=== PATIENT | female | born 1955 | race Caucasian/White ===

== ENCOUNTER 2020-05-22 16:34 | Emergency (ER) | payer BC, SELFPAY ==
[2020-05-22 16:56] VITALS: BP 134/65; PULSE 72; RESP 16; TEMP 36.5; O2SAT 94; BMI 36.7
--- NOTE | 2020-05-22 17:03 | W.ED.FEMALGU ---
HPI - Female Genitourinary General: Chief complaint: Urogenital-Female Stated complaint: poss uti Time Seen by Provider: 05/22/20 17:01 History of Present Illness: HPI Narrative: Patient is a 64-year-old female comes to the ED with UTI symptoms. Patient says symptoms started on Saturday. She is having some bladder pain, dysuria and increased frequency and urgency to urinate. She endorses feeling a little bit nauseous but has not had any episodes of emesis. Denies fever, chills, shortness of breath, abdominal pain, constipation or diarrhea. Denies any vaginal discharge or vaginal itching. Associated symptoms: Deny abdominal pain, headache(s), nausea or vaginal discharge Review of Systems Const: Denies: fever(s), chills or fatigue Eyes: Denies: change in vision or eye discomfort ENMT: Denies: throat pain, odynophagia, nasal discharge or nasal congestion Card: Denies: chest pain, palpitations, edema, swelling of feet/ankles, dyspnea on exertion or orthopnea Resp: Denies: dyspnea, productive cough or non-productive cough GI: Denies: abdominal pain, nausea, vomiting, diarrhea, constipation or hematochezia : Reports: dysuria, urinary frequency and urinary urgency; Denies: flank pain, hematuria, genital pruritis or vaginal discharge Musc: Denies: neck pain, back pain or extremity swelling Skin/Breast: Denies: rash or new lesions Neuro: Denies: headache(s), numbness in extremities or weakness in extremities PFS ED PFSH: Social History Smoking and tobacco status: never smoked Alcohol intake: never Substance/Drug Use: never Physical Exam Const: COMMON NORMALS: no acute distress and alert GENERAL APPEARANCE: cooperative and comfortable HENMT: COMMON NORMALS: normocephalic HEAD & SCALP: normocephalic MOUTH: Normal oral and palatal mucosa present THROAT: posterior oropharynx normal and uvula midline Neck/C-Spine: COMMON NORMALS: supple GENERAL: Yes normal visual inspection Resp: COMMON NORMALS: normal respiratory effort, No retractions, No use of accessory muscles and clear to auscultation bilaterally AUSCULTATION: clear to auscultation bilaterally Cardio: COMMON NORMALS: regular rate, regular rhythm, S1 normal heart sound present, S2 normal heart sound present, No gallops present (Cardio), No clicks present (Cardio), No murmurs present (Cardio) and Peripheral pulses 2+ throughout RATE: regular rate RHYTHM: regular rhythm HEART SOUNDS: S1 normal heart sound present and S2 normal heart sound present PERIPHERAL PULSES: Peripheral pulses 2+ throughout GI: COMMON NORMALS: Normal to inspection, nondistended, normoactive bowel sounds present, Soft to palpation, non-tender and no masses PALPATION: Yes Soft to palpation and Yes Bladder palpation abnormal : COMMON NORMALS: Yes no CVA tenderness BLADDER/KIDNEY EXAM: Yes no CVA tenderness and Yes Bladder palpation abnormal Bladder abnormal details: tender (mild) Back/Pelvis: COMMON NORMALS: no CVA tenderness Extremity: COMMON NORMALS: normal to inspection and no pedal edema Neuro: SENSORIUM/ORIENTATION: Yes alert Skin: COMMON NORMALS: no rashes or lesions noted GENERAL SKIN EXAM: no rashes or lesions noted and dry skin Course Vital Signs: Vital signs: Vital Signs Temperature 97.7 F 05/22/20 16:56 Pulse Rate 71 05/22/20 18:31 Respiratory Rate 16 05/22/20 18:31 Blood Pressure 133/76 05/22/20 18:31 Pulse Oximetry 96 05/22/20 18:31 MDM - Female MDM Narrative: Medical decision making narrative: Patient is a 64-year-old female comes to the ED with UTI symptoms. UA showed multiple RBCs, white blood cells and bacteria. Patient diagnosed with UTI and put on a prescription of cefdinir. Follow-up with PCP in 7 to 10 days. Return to ED precautions given. Patient understood agree with plan. Lab Data: Attestation: I reviewed the patient's lab results. Labs: Lab Results 05/22/20 Range/Units 17:14 Urine Color Yellow (Yellow) Urine Appearance Sl cloudy A (CLEAR) Urine pH 6 (5-7) Ur Specific Gravit y 1.010 (1.005-1.030) Urine Protein Neg (Negative) Urine Glucose (UA) 4+ H (Normal) Urine Ketones Negative (Negative) Urine Blood 3+ H (Negative) Urine Nitrate Negative (Negative) Urine Bilirubin Neg (Negative) Urine Urobilinogen Norm (Negative) mg/dL Ur Leukocyte Shanell ase 2+ H (Negative) Urine RBC Too numerous to c nt H (0-2) /hpf Urine WBC Too numerous to c nt H (0-5) /hpf Ur Squamous Epith Cells 0-4 H (0-5) /hpf Amorphous Sediment 1+ /hpf Urine Bacteria 1+ H (NONE) /hpf Discharge Plan Discharge Patient Disposition: Home Clinical Impression: Urinary tract infection Qualifiers: Urinary tract infection type: acute cystitis Hematuria presence: with hematuria Qualified Code(s): N30.01 - Acute cystitis with hematuria Condition: Stable Prescriptions: New sulfamethoxazole-trimethoprim 800-160 mg tablet 1 tab PO BID 7 Days Qty: 14 RF: 0 Discharge Orders: Discharge Order (Routine); Ordered 05/22/20 Ordered By: Micah Mcgee Discharge Diet: Regular Discharge Activity: Resume usual activity Patient Instructions: Urinary Tract Infection in Women (ED) Activity Restrictions/Additional Instructions: Follow-up with medical provider as directed in 7- 10 days. Take medications as prescribed. Return to the ER or your medical provider if condition worsens. Please read and understand discharge instructions. If any questions, please ask. Discharge Date/Time: 05/22/20 18:31 Coding Level of Care Code ED Neck Band Setter for Levi Fwd Exam Comprehensive
[2020-05-22 17:16] VITALS: RESP 16
[2020-05-22 17:50] LABS: Bilirubin Urine Neg (Negative); Blood Urine 3+ (Negative); Glucose Urine UA 4+ (Normal); Ketones Urine Negative (Negative); Leukocyte Esterase Urine 2+ (Negative); Nitrate Urine Negative (Negative); Protein Urine Neg (Negative); Urine Color Yellow (Yellow); Urobilinogen Urine Norm (Negative); pH Urine 6 (5-7)
[2020-05-22 18:03] LABS: RBC Urine TOO NUMEROUS TO CNT /hpf (0-2); WBC Urine TOO NUMEROUS TO CNT /hpf (0-5)
[2020-05-22 18:04] LABS: Add Urine Culture? Yes; Amorphous Sediment Urine 1+ /hpf; Bacteria Urine 1+ /hpf; Squamous Epithelial Cell Urine 0-4 /hpf (0-5)
[2020-05-22] MEDS: sulfamethoxazole-trimeth DS 160-800 mg Tablet 1 TAB PO (18:26)
[2020-05-22 18:31] VITALS: BP 133/76; PULSE 71; RESP 16; O2SAT 96
== END 2020-05-22 18:31 | disposition home or self-care (01) ==
PROVIDERS: Emergency Provider Physician Assistant
DX: N30.01 Acute cystitis with hematuria (principal)
CPT/HCPCS: 12345; 81001; 87077; 87086; 87186; 99282; 99283

== ENCOUNTER 2020-12-21 08:16 | Outpatient (CLI) | payer MEDICARE, OTHER, SELFPAY ==
--- NOTE | 2020-12-21 09:50 | N.ONRAD NP_ITS ---
Radiation Oncology Consultation Patient Name: Malaika Marin Date of : 1955 Date of Service: 12/21/2020 Attending Physician: Raul Cano M.D. Malaika Marin was seen in consultation this morning for evaluation regarding adjuvant head and neck radiotherapy for the management of a recently diagnosed oral cavity carcinoma. The patient was evaluated regarding a lesion on her right mandibular ridge in August. Physical examination identified a 3 cm x 2 cm x 1.5 cm exophytic lesion within the premolar region of the right mandibular ridge. A biopsy of the lesion diagnosed a well-differentiated keratinizing squamous cell carcinoma. A CT of the neck ordered on October 04, 2020 demonstrated a 1.6 cm x 1 cm x 1.2 cm soft tissue lesion of the right mandibular alveolar ridge and an ill-defined nodule in the left thyroid lobe without pathologically enlarged lymphadenopathy. A PET CT scan (independently visualized in [facility]) confirmed FDG activity within the right mandibular alveolar ridge (SUV 10.3) and a right level 1b lymph node measuring 6 mm x 4 mm with a maximal SUV of 2.9). There was no evidence of metastatic disease. A composite resection with right segmental mandibulectomy, floor of mouth excision, buccal mucosal resection, and tracheostomy with reconstruction consisting of a left osteocutaneous free fibular flap, transosteal plating, and split thickness skin graft was performed on October 28, 2020 at [facility] in [place], [place]. Pathology (report requested from outside hospital and personally reviewed) confirmed a 2.4 cm differentiated keratinizing squamous cell carcinoma demonstrating 7 mm invading through the cortical bone of the mandible. A total of 28 lymph nodes were harvested with 1 (4 mm) harboring metastatic disease without extranodal extension. Her hospital course was complicated by a MRSA wound infection requiring incision and debridement. She presents for discussion regarding consideration of postoperative radiotherapy. I discussed with Ms. Marin The AJCC staging, specifically the patient's pathological stage DAISY (T4aN1) of the oral cavity associated with her diagnosis and The National Comprehensive Cancer Network Guidelines for adjuvant radiotherapy in patients with newly resected tumors and adverse features (i.e. close margins, lymphovascular invasion/perineural, pN2/pN3, or advanced tumors; pT3-pT4). I would endorse a six week course of radiation therapy. I will order labs today and prior to beginning treatment, a radiotherapy planning CT scan with contrast will be acquired to delineate the clinical target volumes. I reviewed the potential toxicities of head and neck radiotherapy. The patient has verbalized understanding and would like to proceed as advocated. Signed by: Dr. Raul Cano 12/28/2020 9:19:45 AM
[2020-12-21] MEDS: alteplase 1 mg/mL SDV 2 mL 2 MG IV (10:20)
[2020-12-21 11:22] LABS: Basophils # 0.1 10^3/uL (0.0-0.1); Basophils % 0.7 %; Eosinophils # 0.2 10^3/uL (0.0-0.8); Eosinophils % 2.1 %; Hematocrit 36.2 % (37.0-47.0); Hemoglobin 10.9 g/dL (11.5-15.3); Lymphocytes # 1.3 10^3/uL (0.8-4.8); Lymphocytes % 14.9 %; Mean Corpuscular HGB Conc 30.1 g/dL (30.0-36.0); Mean Corpuscular Hemoglobin 26.9 pg (28.0-34.0); Mean Corpuscular Volume 89.4 fL (81-99); Mean Platelet Volume 11.5 fL (7.4-10.4); Monocytes # 0.4 10^3/uL (0.2-0.9); Monocytes % 4.2 %; Neutrophils % 77.8 %; Nucleated Red Blood Cells % 0 %; Platelet Count 230 10^3/cmm (130-400); Red Blood Count 4.05 10^6/uL (4.1-5.3); Red Cell Distribution Width 13.9 % (12.1-15.1); White Blood Count 8.7 10^3/uL (4.0-10.0)
[2020-12-21 12:00] LABS: Alanine Aminotransferase 14 U/L (0-33); Albumin Level 3.6 g/dL (3.5-5.2); Alkaline Phosphatase 110 IU/L (35-105); Anion Gap 14.6 (5-19); Aspartate Amino Transferase 14 U/L (0-32); Blood Urea Nitrogen 19 mg/dL (8-23); Calcium 9.2 mg/dL (8.5-10.5); Carbon Dioxide 26 mmol/L (22-29); Chloride 96 mmol/L (98-107); Globulin 2.9 g/dL (1.3-4.6); Glomerular Filtration Rate 84.2 mL/min (90-130); Glucose 235 mg/dL (65-115); Osmolality Calculated 284 mOsm/kg (285-295); Potassium 4.6 mmol/L (3.5-5.1); Sodium 132 mmol/L (136-145); Total Bilirubin 0.4 mg/dL (0.15-1.2); Total Protein 6.5 g/dL (6.6-8.7)
== END 2020-12-21 08:17 | disposition home or self-care (01) ==
PROVIDERS: PCP Family Medicine; Visit Provider Radiology Radiation Oncology
DX: C14.8 Malignant neoplasm of overlapping sites of lip, oral cavity and pharynx (principal)
CPT/HCPCS: 36593; 80053; 85025; 96374; 99205; J2997

== ENCOUNTER 2021-01-03 11:47 | Outpatient (RCR) | payer MEDICARE, OTHER, SELFPAY | END 2021-01-23 23:59 | disposition home or self-care (01) | LOC: SST 11:47 | PROVIDERS: PCP Family Medicine; Referring Provider Physician Assistant; Visit Provider Physician Assistant | DX: R13.11 Dysphagia, oral phase (principal) | CPT/HCPCS: 92507; 92523; 92610 ==

== ENCOUNTER 2021-01-20 05:43 | Outpatient (RCR) | payer MEDICARE, OTHER, SELFPAY ==
--- NOTE | 2020-12-28 | CT_ITS ---
Radiation Therapy Planning CT images; total exam DLP: 853.31 mGy-cm MTDD
--- NOTE | 2021-01-03 15:00 | ONCRAD TMN_ITS ---
Radiation Oncology Treatment Management Note Patient Name: Malaika Marin Date of : 1955 Date of Service: 01/03/2021 Attending Physician: Raul Cano M.D. 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 A composite resection with right segmental mandibulectomy, floor of mouth excision, buccal mucosal resection, and tracheostomy with reconstruction consisting of a left osteocutaneous free fibular flap, transosteal plating, and split thickness skin graft was performed on October 28, 2020. The patient has received 2 Gy of a prescribed 66 Bautista with an intensity modulated radiotherapy plan utilizing a step and shoot treatment technique. Upon review of systems, she denied any complaints related to radiotherapy. On physical examination, the patient weighed 186 lbs. Her temperature was 97.6 ???F with a blood pressure of 118/61 mmHg. Her pulse was 70 bpm and the respiratory rate was 20. No erythema within the treatment tony. Continue post-operative head and neck radiotherapy as prescribed. Signed by: Dr. Raul Cano 01/03/2021 2:58:35 PM
[2021-01-06 10:34] LABS: Urine Color Other (Yellow)
[2021-01-06 10:35] LABS: Blood Urine 3+ (Negative); Glucose Urine UA 4+ (Normal); Ketones Urine Negative (Negative); Nitrate Urine Negative (Negative); Protein Urine 1+ (Negative); Urine Appearance Cloudy (CLEAR); pH Urine 5 (5-7)
[2021-01-06 10:36] LABS: Bilirubin Urine Neg (Negative); Leukocyte Esterase Urine 2+ (Negative); RBC Urine >100 /hpf (0-2); Urobilinogen Urine Norm (Negative)
[2021-01-06 10:37] LABS: Bacteria Urine 1+ /hpf; Squamous Epithelial Cell Urine 0-4 /hpf (0-5); WBC Urine 25-40 /hpf (0-5)
[2021-01-06 10:38] LABS: Add Urine Culture? Yes
--- NOTE | 2021-01-10 15:15 | ONCRAD TMN_ITS ---
Radiation Oncology Treatment Management Note Patient Name: Malaika Marin Date of : 1955 Date of Service: 01/10/2021 Attending Physician: Raul Cano M.D. 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 A composite resection with right segmental mandibulectomy, floor of mouth excision, buccal mucosal resection, and tracheostomy with reconstruction consisting of a left osteocutaneous free fibular flap, transosteal plating, and split thickness skin graft was performed on October 28, 2020. The patient has received 12 Gy of a prescribed 66 Bautista with an intensity modulated radiotherapy plan utilizing a step and shoot treatment technique. Upon review of systems, she denied any complaints related to radiotherapy. She described dizziness that started prior to treatment. On physical examination, the patient weighed 188 lbs. Her temperature was 98.2 ???F with a blood pressure of 113/58 mmHg. Her pulse was 70 bpm and the respiratory rate was 18. No erythema within the treatment tony. Continue post-operative head and neck radiotherapy as planned. I will order labs and contact edge molder about evaluating ICD. Signed by: Dr. Raul Cano 01/10/2021 3:14:01 PM
[2021-01-10 16:03] LABS: Basophils # 0.1 10^3/uL (0.0-0.1); Basophils % 0.8 %; Eosinophils # 0.1 10^3/uL (0.0-0.8); Eosinophils % 1.7 %; Hematocrit 35.5 % (37.0-47.0); Hemoglobin 10.9 g/dL (11.5-15.3); Lymphocytes # 0.9 10^3/uL (0.8-4.8); Lymphocytes % 14.4 %; Mean Corpuscular HGB Conc 30.7 g/dL (30.0-36.0); Mean Corpuscular Volume 87.9 fL (81-99); Mean Platelet Volume 11.4 fL (7.4-10.4); Monocytes # 0.5 10^3/uL (0.2-0.9); Monocytes % 7.1 %; Neutrophils % 75.5 %; Nucleated Red Blood Cells % 0 %; Platelet Count 264 10^3/cmm (130-400); Red Blood Count 4.04 10^6/uL (4.1-5.3); Red Cell Distribution Width 14.5 % (12.1-15.1); White Blood Count 6.5 10^3/uL (4.0-10.0)
[2021-01-10 16:27] LABS: Alanine Aminotransferase 11 U/L (0-33); Albumin Level 3.9 g/dL (3.5-5.2); Alkaline Phosphatase 84 IU/L (35-105); Anion Gap 16.4 (5-19); Aspartate Amino Transferase 14 U/L (0-32); Blood Urea Nitrogen 32 mg/dL (8-23); Calcium 9.4 mg/dL (8.5-10.5); Carbon Dioxide 28 mmol/L (22-29); Chloride 89 mmol/L (98-107); Glomerular Filtration Rate 45.2 mL/min (90-130); Glucose 228 mg/dL (65-115); Magnesium 2.7 mg/dL (1.7-2.3); Osmolality Calculated 282 mOsm/kg (285-295); Potassium 4.4 mmol/L (3.5-5.1); Sodium 129 mmol/L (136-145); Total Bilirubin 0.3 mg/dL (0.15-1.2); Total Protein 6.9 g/dL (6.6-8.7)
--- NOTE | 2021-01-17 14:00 | ONCRAD TMN_ITS ---
Radiation Oncology Weekly Treatment Management Patient: Tania Bazzi MR#: [id number] : 1955> Attending Physician: Dr. Omer Harley Date of Service: 01/17/2021 Referring Physician(s) : Dr. 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 ID: [id number], Energy: 6X, Dose/Fx (cGy): 200, #Fx: , Dose Correction (cGy): 0, Total Dose (cGy): 2,200, Start Date: 01/03/2021, Elapsed Days: 14 Reason for visit: The patient is being seen today as part of their regularly scheduled weekly on treatment visits to assess for acute toxicities from radiotherapy. Review of Systems: Previous UTI now clear following Bacrim. Notes new rash in left groin. Tolerating soft diet well. No sore mouth or throat. Able to do some laundry and kitchen work. Gets dizzy after along walk. This does clear after a rest. No BP measured at these times. She has a pacer /defibrillator placed. She is on HTN meds. Vital Signs: Performed on 01/17/2021 1:29 PM BMI - 32.133 kg/m2 (high), Height - 64.00 in, Weight - 187.2 lbs, Temperature - 98.4 f, Pulse - 70, Respiration - 18, O2 Sat - 98 %, Pain - 0 and BP - 120/ 58 mm(hg)(/low). Physical Exam: Imaging: Radiation therapy imaging related to accurate target localization (i.e. KV, MV and CBCT) was reviewed. Appropriate changes, if any, were made to ensure treatment accuracy. Plan: Good tolerance of RT. Continue as planned. Check BP at home when dizziness is present. Signed by: Dr. Omer Harley 01/17/2021 1:59:32 PM
== END 2021-01-23 23:59 | disposition home or self-care (01) ==
LOC: ONCMED 05:43
PROVIDERS: Radiology Radiation Oncology; PCP Family Medicine; Visit Provider Radiology Radiation Oncology
DX: Z51.0 Encounter for antineoplastic radiation therapy (principal); C14.8 Malignant neoplasm of overlapping sites of lip, oral cavity and pharynx; Z79.899 Other long term (current) drug therapy
CPT/HCPCS: 36415; 77300; 77301; 77334; 77336; 77338; 77386; 80053; 81001; 83735; 85025; 87077; 87086; 87186; Q9967

== ENCOUNTER 2021-01-24 06:00 | Outpatient (RCR) | payer MEDICARE, OTHER, SELFPAY | END 2021-02-22 23:59 | disposition home or self-care (01) | LOC: SST 06:00 | PROVIDERS: PCP Family Medicine; Referring Provider Physician Assistant; Visit Provider Physician Assistant | DX: R13.11 Dysphagia, oral phase (principal); C06.9 Malignant neoplasm of mouth, unspecified | CPT/HCPCS: 92507 ==

== ENCOUNTER 2021-02-02 06:00 | Outpatient (RCR) | payer MEDICARE, OTHER, SELFPAY | END 2021-02-22 23:59 | disposition home or self-care (01) | LOC: SPT 06:00 | PROVIDERS: PCP Family Medicine; Referring Provider Family Medicine; Visit Provider Family Medicine | DX: C06.9 Malignant neoplasm of mouth, unspecified (principal); R13.11 Dysphagia, oral phase | CPT/HCPCS: 97110; 97140; 97161 ==

== ENCOUNTER 2021-02-14 05:49 | Outpatient (RCR) | payer MEDICARE, OTHER, SELFPAY ==
--- NOTE | 2021-01-24 11:35 | ONCRAD TMN_ITS ---
Radiation Oncology Treatment Management Note Patient Name: Malaika Marin Date of : 1955 Date of Service: 01/24/2021 Attending Physician: Raul Cano M.D. 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 A composite resection with right segmental mandibulectomy, floor of mouth excision, buccal mucosal resection, and tracheostomy with reconstruction consisting of a left osteocutaneous free fibular flap, transosteal plating, and split thickness skin graft was performed on October 28, 2020. The patient has received 30 Gy of a prescribed 66 Bautista with an intensity modulated radiotherapy plan utilizing a step and shoot treatment technique. Upon review of systems, she denied any complaints related to radiotherapy. She reported symptoms of a UTI. On physical examination, the patient weighed 187 lbs. Her temperature was 98.4 ???F with a blood pressure of 132/71 mmHg. Her pulse was 70 bpm and the respiratory rate was 20. No erythema within the treatment tony. Continue post-operative head and neck radiotherapy as planned. I will prescribe Bactrim DS for UTI (prior UA culture grew E. Coli and was sensitive to Bactrim. Signed by: Dr. Raul Cano 01/24/2021 11:33:36 AM
--- NOTE | 2021-01-31 14:59 | ONCRAD TMN_ITS ---
Radiation Oncology Treatment Management Note Patient Name: Malaika Marin Date of : 1955 Date of Service: 01/31/2021 Attending Physician: Raul Cano M.D. 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 A composite resection with right segmental mandibulectomy, floor of mouth excision, buccal mucosal resection, and tracheostomy with reconstruction consisting of a left osteocutaneous free fibular flap, transosteal plating, and split thickness skin graft was performed on October 28, 2020. The patient has received 40 Gy of a prescribed 66 Bautista with an intensity modulated radiotherapy plan utilizing a step and shoot treatment technique. Upon review of systems, she denied any complaints related to radiotherapy. On physical examination, the patient weighed 185 lbs. Her temperature was 97.4 ???F with a blood pressure of 118/58 mmHg. Her pulse was 70 bpm and the respiratory rate was 18. No erythema within the treatment tony. Continue post-operative head and neck radiotherapy as prescribed. Signed by: Dr. Raul Cano 01/31/2021 2:58:10 PM
--- NOTE | 2021-02-07 15:18 | ONCRAD TMN_ITS ---
Radiation Oncology Treatment Management Note Patient Name: Malaika Marin Date of : 1955 Date of Service: 02/07/2021 Attending Physician: Raul Cano M.D. Malaika aMrin is a 65 year old white female diagnosed with a pathological stage DAISY (T4aN1) moderately differentiated invasive squamous cell carcinoma (T4a is on account of cortical bone invasion) of the oral cavity. A composite resection with right segmental mandibulectomy, floor of mouth excision, buccal mucosal resection, and tracheostomy with reconstruction consisting of a left osteocutaneous free fibular flap, transosteal plating, and split thickness skin graft was performed on October 28, 2020. The patient has received 50 Gy of a prescribed 60 Bautista with an intensity modulated radiotherapy plan utilizing a step and shoot treatment technique. Upon review of systems, she described dysgeusia and xerostomia. On physical examination, the patient weighed 183 lbs. Her temperature was 97.7 ???F with a blood pressure of 121/61 mmHg. Her pulse was 70 bpm and the respiratory rate was 18. A grade II dermatitis was present within the treatment tony. Continue post-operative head and neck radiotherapy as planned. Signed by: Dr. Raul Cano 02/07/2021 3:17:10 PM
--- NOTE | 2021-02-14 15:18 | ONCRAD TMN_ITS ---
Radiation Oncology Treatment Management Note Patient Name: Malaika Marin Date of : 1955 Date of Service: 02/14/2021 Attending Physician: Raul Cano M.D. 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 A composite resection with right segmental mandibulectomy, floor of mouth excision, buccal mucosal resection, and tracheostomy with reconstruction consisting of a left osteocutaneous free fibular flap, transosteal plating, and split thickness skin graft was performed on October 28, 2020. The patient has received 60 Gy of a prescribed 60 Bautista with an intensity modulated radiotherapy plan utilizing a step and shoot treatment technique. Upon review of systems, she described nausea and diarrhea. On physical examination, the patient weighed 181 lbs. Her temperature was 98.7 ???F with a blood pressure of 121/62 mmHg. Her pulse was 76 bpm and the respiratory rate was 20. A grade II dermatitis was present within the treatment tony. Post-operative radiotherapy was completed today. I will prescribe Compazine for the nausea and recommend Imodium for diarrhea. The symptoms are likely viral. Signed by: Dr. Raul Cano 02/14/2021 3:17:28 PM
[2021-02-14] MEDS: ondansetron 4 MG Tablet 8 MG PO (15:30)
== END 2021-02-22 23:59 | disposition home or self-care (01) ==
LOC: ONCMED 05:49
PROVIDERS: PCP Family Medicine; Visit Provider Radiology Radiation Oncology
DX: Z51.0 Encounter for antineoplastic radiation therapy (principal); C14.8 Malignant neoplasm of overlapping sites of lip, oral cavity and pharynx; Z79.899 Other long term (current) drug therapy; C06.9 Malignant neoplasm of mouth, unspecified; R13.11 Dysphagia, oral phase
CPT/HCPCS: 77336; 77386; 97161; Q0162

== ENCOUNTER 2021-02-23 06:00 | Outpatient (RCR) | payer MEDICARE, OTHER, SELFPAY | END 2021-03-25 23:59 | disposition home or self-care (01) | LOC: SPT 06:00 | PROVIDERS: PCP Family Medicine; Referring Provider Family Medicine; Visit Provider Family Medicine | DX: C06.9 Malignant neoplasm of mouth, unspecified (principal); R13.11 Dysphagia, oral phase | CPT/HCPCS: 97110 ==

== ENCOUNTER 2021-02-23 06:00 | Outpatient (RCR) | payer MEDICARE, OTHER, SELFPAY | END 2021-03-25 23:59 | disposition home or self-care (01) | LOC: SST 06:00 | PROVIDERS: PCP Family Medicine; Referring Provider Physician Assistant; Visit Provider Physician Assistant | DX: C06.9 Malignant neoplasm of mouth, unspecified (principal); R13.11 Dysphagia, oral phase | CPT/HCPCS: 92507; 97110 ==

== ENCOUNTER 2021-04-26 06:00 | Outpatient (RCR) | payer MEDICARE, OTHER, SELFPAY | END 2021-05-25 23:59 | disposition home or self-care (01) | LOC: SPT 06:00 | PROVIDERS: PCP Family Medicine; Referring Provider Family Medicine; Visit Provider Family Medicine | DX: C06.9 Malignant neoplasm of mouth, unspecified (principal); R13.11 Dysphagia, oral phase | CPT/HCPCS: 97110 ==

== ENCOUNTER 2021-05-26 06:00 | Outpatient (RCR) | payer MEDICARE, OTHER, SELFPAY | END 2021-06-25 23:59 | disposition home or self-care (01) | LOC: SPT 06:00 | PROVIDERS: PCP Family Medicine; Referring Provider Family Medicine; Visit Provider Family Medicine | DX: M25.611 Stiffness of right shoulder, not elsewhere classified (principal) | CPT/HCPCS: 97110; 97140 ==

== ENCOUNTER 2021-06-26 06:00 | Outpatient (RCR) | payer MEDICARE, OTHER, SELFPAY | END 2021-07-25 23:59 | disposition home or self-care (01) | LOC: SPT 06:00 | PROVIDERS: PCP Family Medicine; Visit Provider Family Medicine | DX: C06.9 Malignant neoplasm of mouth, unspecified (principal) | CPT/HCPCS: 97110 ==

== ENCOUNTER 2021-07-18 07:27 | Outpatient (CLI) | payer MEDICARE, OTHER, SELFPAY ==
--- NOTE | 2021-07-18 11:06 | ONC CON_ITS ---
Dr. Ledbetter New Patient Note Patient: Malaika Marin Unit #: [id number]: 1955 Dicatated By: Vera Ledbetter M.D.Date of Visit: Jul 18, 2021 Onc MED New Patient/Consult Referring Physician: Dr. Giorgio Rae M.D. History of Present Illness: Ms. 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 Complicated by MRSA infection of right neck for which she received inpatient care and parenteral antibiotics. Subsequently underwent postop radiation therapy to the right neck which she completed in [place] on February 14, 2021. As per patient in the end of February 2021 she was diagnosed with Covid infection and was treated as inpatient as per patient her who also contacted Covid infection and unfortunately he did not survive. And in first week of March 2021 patient noted puslike material from right anterior mandible area, which was progressive, as per patient Dr. aRe, her PMD gave her doxycycline for a week with some improvement but then again infection in this area got active and progressed as per patient she received another weekly course of doxycycline but this anterior submandibular area continue to slough off and off and on pus like discharge . Patient said she did notice a small nodule in her left submental area which got somewhat bigger as she continued to manipulate it and eventually evaluated by her ENT physician Dr. Capps and on May 15, [address] scan of the neck which shows posttreatment changes in the right neck without gross evidence of residual or recurrent mucosal disease or ipsilateral lymphadenopathy. Indeterminate 1.5 cm nodule in the left toward submandibular space anteriorly which could represent necrotic juanito metastasis., Subsequently, on May 26, 2021 CT PET scan was done which showed new left level 1 lymph node of concern for metastatic involvement without evidence of likely distant disease. Likely postop inflammatory and osseous remodeling findings in the right side. Incidental finding of likely pulmonary inflammation and cardiomegaly On June 14, 2021 she underwent FNA, as per medical record/Dr. Capps's note, right neck submental, FNA which was positive for malignancy, squamous cell On June 21, 2021 she underwent, again right anterior cervical mass ultrasound-guided core biopsy which shows fibrous tissue with mixed inflammation and right mandibular angle mass, ultrasound-guided core biopsy showed fibrous tissue with mixed inflammation, focally involved by squamous cell carcinoma and right anterior fluid collection, cell prep shows no malignant cell identified. As per patient, she was told about recurrence of disease and was offered systemic therapy in [place] but due to convenience she would prefer cancer center in [place]. Patient denies any fever but occasional chills, denies any weight loss. Denies any dysphagia denies any shortness of breath, denies any hemoptysis or hematemesis, denies any night sweats but has persistent right anterior mandibular wound which is chronic in nature with off and on puslike material. Past Medical History: Ms. Marin's medical history consists of chronic kidney disease, congestive heart failure, depression, hyperlipidemia, hypertension, obstructive sleep apnea, type II diabetes, and Covid in 2020. Past Surgical History: Ms. Marin's surgical/procedural history consists of gastrostomy tube placement, implanted defibrillator, pacemaker placement, appendectomy in 1991, and hysterectomy/bilateral salpingectomy-oophorectomy in 1991. Medications: Acetaminophen 2 Tablet (of 325 mg) Tablet Oral q 4 to 6 hours PRN, Aldactone 1 (50 mg) Tablet Oral b.i.d., Aspirin Adult Low Dose 1 (81 mg) Tablet, enteric coated Oral daily, Atorvastatin Calcium 1 Tablet (of 40 mg) Oral daily, Carvedilol 1 Tablet (of 25 mg) Oral b.i.d., FLUoxetine HCl 1 Capsule (of 20 mg) Oral daily, Furosemide 1 Tablet (of 40 mg) Oral b.i.d., HumaLOG 50 Units (of 100 Units/mL) Subcutaneous t.i.d., Jardiance 1 Tablet (of 25 mg) Oral daily, Toujeo SoloStar 10 Units (of 300 Units/mL) Subcutaneous t.i.d. Allergies: Glucophage Social History: Ms. Marin is . Ms. Marin has never smoked. She has no history of drinking. Family History: There is no documented family history. Review Of Symptoms: Review of Systems is not available for this patient. Vital Signs: Performed on Jul 18, 2021 08:07: 5, 3, 30.97 (HIGH), 1.87 sq.m, 64.00 in, 94 % (LOW), 79 /min, 18 /min, 131/69 mm(hg), 98.6 F, and 180.4 lbs (LOW). Performance Status: 0 - Fully active, able to carry on all predisease activities without restrictions. (ECOG) Physical Examination: ENMT - No mouth sores, postop changes in the right neck with some puffiness, skin wound with granulation and some puslike material noted in right anterior mandibular area, about centimeter size nodule/fullness in left submental area, nontender, Respiratory - Lungs are clear to auscultation, Cardiovascular - Regular rate and rhythm of heart, Abdomen - Soft, bowel sounds present, Extremities - No visible edema. Lab/Imaging: Most recent lab results are not available for this patient. Impression: Right neck anterior cervical mass ultrasound directed core biopsy done on June 21, 2021 shows fibrous tissue with mixed inflammation, no evidence of malignancy. 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 Complicated by MRSA required inpatient care with parenteral antibiotics, followed by adjuvant radiation therapy which completed on February 14, 2021 Plan: Discussed with patient regarding her recently done FNA of right neck and right submental mass which shows squamous cell carcinoma. Case was discussed with Dr. Gabi Ramos, pathologist at [facility] in [place], this morning. As per discussion, she would review the cytology again, as at present she is not sure whether she received left neck lymph node FNA specimen. And moreover right neck right submandibular angle mass FNA showed focal involved by squamous cell carcinoma., She called back and after reviewing-again, now she think, she would amend the report which will be down graded to suspicious for squamous cell carcinoma. And she thinks FNA done on June 14, 2021 was mislabeled as right submental, should be left submental but she will double check it and review the cytology. , At this point concern is reliability of FNA especially when patient has active infection/inflammation in the right anterior mandibular area, which may be draining into left submental area especially after reconstruction and post radiation changes moreover CT PET scan done on May 26, 2021 did not show any definite mass in the right neck rather inflammatory changes, so we will discuss with Dr. Capps, regarding left submental lymph node excisional biopsy, to confirm the disease especially when patient had 1 out of 28 lymph node positive and lymph node did not show any extracapsular extension and only 4 mm, moreover involved left submental also received significant radiation therapy which was completed on February 14, 2021 and if it is squamous cell carcinoma, will consider molecular profiling to identify targetable mutation and also request PD-L1 status. Patient will return to clinic in 1 week for further discussion as pathology is reviewing her FNA in detail. As patient has chronic wound in right anterior mandibular area, she may have underlying osteomyelitis, as per patient, she has never seen infectious disease, so we will refer her to Dr. Gaxiola, infectious disease for evaluation and management Signed By: Vera Ledbetter M.D. <<Signature on File>>
== END 2021-07-18 07:28 | disposition home or self-care (01) ==
LOC: ONCMED 07:30
PROVIDERS: PCP Family Medicine; Visit Provider Internal Medicine Hematology & Oncology
DX: C76.0 Malignant neoplasm of head, face and neck (principal); Z85.89 Personal history of malignant neoplasm of other organs and systems; Z92.3 Personal history of irradiation; Z79.899 Other long term (current) drug therapy
CPT/HCPCS: 99205

== ENCOUNTER 2021-08-02 07:56 | Outpatient (CLI) | payer MEDICARE, OTHER, SELFPAY ==
[2021-08-02 08:26] LABS: Basophils # 0.1 10^3/uL (0.0-0.1); Eosinophils # 0.1 10^3/uL (0.0-0.8); Eosinophils % 1.9 %; Hematocrit 39.1 % (37.0-47.0); Hemoglobin 11.8 g/dL (11.5-15.3); Lymphocytes # 0.5 10^3/uL (0.8-4.8); Lymphocytes % 8.9 %; Mean Corpuscular HGB Conc 30.2 g/dL (30.0-36.0); Mean Corpuscular Hemoglobin 25.1 pg (28.0-34.0); Mean Corpuscular Volume 83.2 fl (81-99); Monocytes # 0.4 10^3/uL (0.2-0.9); Monocytes % 6.6 %; Neutrophils # 4.83 10^3/uL (1.8-7.7); Neutrophils % 81.3 %; Nucleated Red Blood Cells % 0 %; Platelet Count 279 10^3/cmm (130-400); Red Cell Distribution Width 16.7 % (12.1-15.1); White Blood Count 5.9 10^3/uL (4.0-10.0)
[2021-08-02 08:37] LABS: Alanine Aminotransferase 22 U/L (0-33); Albumin Level 3.7 g/dL (3.5-5.2); Alkaline Phosphatase 214 IU/L (35-105); Anion Gap 18.1 (5-19); Aspartate Amino Transferase 25 U/L (0-32); Blood Urea Nitrogen 20 mg/dL (8-23); Calcium 9.6 mg/dL (8.5-10.5); Carbon Dioxide 29 mmol/L (22-29); Chloride 95 mmol/L (98-107); Glomerular Filtration Rate 84.2 mL/min (90-130); Glucose 130 mg/dL (65-115); Osmolality Calculated 290 mOsm/kg (285-295); Potassium 4.1 mmol/L (3.5-5.1); Sodium 138 mmol/L (136-145); Total Bilirubin 0.4 mg/dL (0.15-1.2); Total Protein 6.7 g/dL (6.6-8.7)
--- NOTE | 2021-08-03 16:42 | ONC FU_ITS ---
Dr. Ledbetter follow up note Patient: Malaika Marin Unit #: [id number]: 1955 Dicatated By: Vera Ledbetter M.D.Date of Visit:Aug 02, 2021 Onc Med Follow-up/Prog Note History of Present Illness: Ms. 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 Complicated by MRSA infection of right neck for which she received inpatient care and parenteral antibiotics. Subsequently underwent postop radiation therapy to the right neck which she completed in [place] on February 14, 2021. As per patient in the end of February 2021 she was diagnosed with Covid infection and was treated as inpatient as per patient her who also contacted Covid infection and unfortunately he did not survive. And in first week of March 2021 patient noted puslike material from right anterior mandible area, which was progressive, as per patient Dr. Rae, her PMD gave her doxycycline for a week with some improvement but then again infection in this area got active and progressed as per patient she received another weekly course of doxycycline but this anterior submandibular area continue to slough off and off and on pus like discharge . Patient said she did notice a small nodule in her left submental area which got somewhat bigger as she continued to manipulate it and eventually evaluated by her ENT physician Dr. Capps and on May 15, [address] scan of the neck which shows posttreatment changes in the right neck without gross evidence of residual or recurrent mucosal disease or ipsilateral lymphadenopathy. Indeterminate 1.5 cm nodule in the left toward submandibular space anteriorly which could represent necrotic juanito metastasis., Subsequently, on May 26, 2021 CT PET scan was done which showed new left level 1 lymph node of concern for metastatic involvement without evidence of likely distant disease. Likely postop inflammatory and osseous remodeling findings in the right side. Incidental finding of likely pulmonary inflammation and cardiomegaly On June 14, 2021 she underwent FNA, as per medical record/Dr. Capps's note, right neck submental, FNA which was positive for malignancy, squamous cell On June 21, 2021 she underwent, again right anterior cervical mass ultrasound-guided core biopsy which shows fibrous tissue with mixed inflammation and right mandibular angle mass, ultrasound-guided core biopsy showed fibrous tissue with mixed inflammation, focally involved by squamous cell carcinoma and right anterior fluid collection, cell prep shows no malignant cell identified. As per patient, she was told about recurrence of disease and was offered systemic therapy in [place] but due to convenience she would prefer cancer center in [place]. Patient denies any fever but occasional chills, denies any weight loss. Denies any dysphagia denies any shortness of breath, denies any hemoptysis or hematemesis, denies any night sweats but has persistent right anterior mandibular wound which is chronic in nature with off and on puslike material. Patient underwent repeat biopsy of left submental lymph node and right mandibular angle lesion and anterior wound biopsy on July 28, 2021 all confirmed recurrence of squamous cell carcinoma Came for follow-up, denies any specific complaints, no fever chills, no nausea or vomiting, no diarrhea constipation, no mouth sores, no dysphagia, no hemoptysis or hematemesis, no weight loss. Medications: Acetaminophen 2 Tablet (of 325 mg) Tablet Oral q 4 to 6 hours PRN, Aldactone 1 (50 mg) Tablet Oral b.i.d., Aspirin Adult Low Dose 1 (81 mg) Tablet, enteric coated Oral daily, Atorvastatin Calcium 1 Tablet (of 40 mg) Oral daily, Carvedilol 1 Tablet (of 25 mg) Oral b.i.d., FLUoxetine HCl 1 Capsule (of 20 mg) Oral daily, Furosemide 1 Tablet (of 40 mg) Oral b.i.d., HumaLOG 50 Units (of 100 Units/mL) Subcutaneous t.i.d., Jardiance 1 Tablet (of 25 mg) Oral daily, Toujeo SoloStar 10 Units (of 300 Units/mL) Subcutaneous t.i.d. Allergies: Glucophage Review of Systems: Review of Systems is not available for this patient. Vital Signs: Vitals are not available for this patient. Performance Status: 0 - Fully active, able to carry on all predisease activities without restrictions. (ECOG) Physical Examination: ENMT - No mouth sores, no thrush, no jaundice, persistent right anterior submandibular lesion with chronic sloughing and wound at the right mandibular angle and a palpable lymph node in left anterior submental area, Respiratory - Lungs are clear to auscultation, Cardiovascular - Regular rate and rhythm of heart, Abdomen - Soft, bowel sounds present, Extremities - No visible edema. Lab/Imaging: Most recent lab results are not available for this patient. Impression: Recurrent squamous cell carcinoma involving left submental lymph node and right anterior mandible and right mandibular angle area biopsy done on July 28, 2021 in [facility] Right neck anterior cervical mass ultrasound directed core biopsy done on June 21, 2021 shows fibrous tissue with mixed inflammation, no evidence of malignancy. 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 Complicated by MRSA required inpatient care with parenteral antibiotics, followed by adjuvant radiation therapy which completed on February 14, 2021 Plan: Discussed with patient regarding her labs white blood count 5.9 hemoglobin 11.8 hematocrit 39.1 platelets 279,000 CMP within normal limits except glucose 130 Clinically, patient doing well with no new symptoms but her repeat biopsies from her left submental lymph node and right anterior mandible lesion and mandible angle area biopsy confirmed squamous cell carcinoma, patient is here for further treatment options. As per NCCN guidelines, treatment options including surgery plus minus postop reirradiation or chemotherapy plus radiation or clinical trial or palliative [place] chemotherapy or if PD-L1 is more than 50% may consider immunotherapy with pembrolizumab alone or chemoimmunotherapy, discussed with patient and her granddaughter, they prefer referred to [facility] for evaluation regarding clinical trial if available, at this point will refer her to [facility] services for evaluation for clinical trial and second opinion. Patient return to clinic after her visit to [facility] unless she decides to pursue treatment there. Signed By: Vera Ledbetter M.D. <<Signature on File>>
== END 2021-08-02 07:57 | disposition home or self-care (01) ==
LOC: ONCMED 07:58
PROVIDERS: PCP Family Medicine; Visit Provider Internal Medicine Hematology & Oncology
DX: C49.0 Malignant neoplasm of connective and soft tissue of head, face and neck (principal); C77.8 Secondary and unspecified malignant neoplasm of lymph nodes of multiple regions; C79.51 Secondary malignant neoplasm of bone; Z79.899 Other long term (current) drug therapy; Z92.21 Personal history of antineoplastic chemotherapy; Z92.3 Personal history of irradiation
CPT/HCPCS: 36415; 80053; 85025; 99214